=== PATIENT | female | born 1955 | race Caucasian/White ===

== ENCOUNTER 2017-08-04 14:24 | Emergency (ER) | payer OTHER ==
[2017-08-04 14:38] VITALS: BP 145/65
== END 2017-08-04 17:30 | disposition home or self-care (01) ==
LOC: ED 14:24
DX: L60.0 Ingrowing nail (principal); E11.40 Type 2 diabetes mellitus with diabetic neuropathy, unspecified; Z79.84 Long term (current) use of oral hypoglycemic drugs; Z79.4 Long term (current) use of insulin
CPT/HCPCS: 82962

== ENCOUNTER 2019-09-08 13:51 | Emergency (ER) | payer OTHER ==
[~2019-09-08] VITALS: Ht 162.6 cm; Wt 85.7 kg
[2019-09-08 14:34] VITALS: Ht 162.6 cm; Wt 85.7 kg
[2019-09-08 17:41] VITALS: BP 135/79
== END 2019-09-08 17:41 | disposition home or self-care (01) ==
LOC: ED 13:51
DX: L03.031 Cellulitis of right toe (principal); E11.9 Type 2 diabetes mellitus without complications; Z88.6 Allergy status to analgesic agent; Z88.5 Allergy status to narcotic agent; Z88.8 Allergy status to other drugs, medicaments and biological substances
CPT/HCPCS: 90715; Q0092